=== PATIENT | male | born 1970 | race Caucasian/White ===

== ENCOUNTER 2018-04-27 14:41 | Outpatient (CLI) | payer BC ==
--- NOTE | 2018-04-27 16:02 | RAD ---
ABDOMEN TWO VIEW: History: Pain with rectal bleeding, altered bowel function. Comparison: None. FINDINGS: There are no dilated air filled loops of large or small bowel. No abnormal calcifications projecting over the renal shadows. No acute osseous abnormality. IMPRESSION: No acute intraabdominal abnormality. POS: [facility]
== END 2018-04-27 14:42 | disposition home or self-care (01) ==
LOC: BICRAD 14:41
PROVIDERS: ATTEND Physician Assistant Medical
DX: K62.5 Hemorrhage of anus and rectum (principal); R19.4 Change in bowel habit
CPT/HCPCS: 74019